=== PATIENT | female | born 1990 | race Caucasian/White ===

== ENCOUNTER → 2017-08-04 | Outpatient (CLI) | payer OTHER ==
[~2017-08-04] VITALS: Ht 154.9 cm; Wt 124.7 kg
[~2017-08-04] MED LIST: BENTYL20 MG PO; DESYREL 150 MG150 MG PO; DITROPAN5 MG PO; LAMICTAL200 MG PO; LITHIUM CARBON300 M1 PO; LITHIUM CARBON600 MG PO; MINIPRESS5 MG PO; ONDANSETRON HCL4 MG PO; SAPHRIS10 MG SL; SEROQUEL200 MG PO; SPRINTEC1 EACH PO; ZIPRASIDONE HCL80 MG PO
[2017-08-04 14:25] LABS: HEMATOCRIT 38.3 % (36.0-46.0); HEMOGLOBIN 11.9 G/DL (11.9-15.5); MCH 25.8 PG (29.0-34.0); MCHC 31.1 G/DL (30.0-36.0); MCV 82.9 FL (83-99); PLATELET COUNT 478 K/uL (156-360); RBC DIS.WIDTH-CV 14.6 % (11.8-14.6); RBC DIS.WIDTH-SD 43.8 % (39-53); RED BLOOD COUNT 4.62 M/uL (3.80-5.20)
[2017-08-04 14:48] LABS: ALBUMIN 4.1 G/DL (3.2-4.8); ALKALINE PHOSPHATASE 95 IU/L (3-129); ALT (GPT) 9 IU/L (3-49); AST (GOT) 13 IU/L (2-34); CHLORIDE 107 MEQ/L (99-109); CREATININE 0.7 MG/DL (0.6-1.3); GFR ESTIMATE (CALCULATED) > 59 mL/min/; GLUCOSE 85 mg/dL (70-99); POTASSIUM 4.2 MEQ/L (3.7-5.4); SODIUM 138 MEQ/L (136-147); TOTAL BILIRUBIN 0.5 MG/DL (0.0-1.0); UREA NITROGEN (BUN) 5 mg/dL (9-23)
== END | disposition home or self-care (01) ==
LOC: AMB 12:19
PROVIDERS: Specialist
DX: R19.4 Change in bowel habit (principal); K64.8 Other hemorrhoids; R11.2 Nausea with vomiting, unspecified; R10.10 Upper abdominal pain, unspecified; R12 Heartburn
CPT/HCPCS: 80053; 81025; 85027; 88305; 88342 TC; J2250; J3010